=== PATIENT | male | born 1945 | race Caucasian/White ===

== ENCOUNTER 2016-10-25 10:37 | Emergency (ER) | payer MEDICARE ==
[2016-10-25 12:36] LABS: BASOPHIL 0.4 % (0-2); EOSINOPHIL 0.8 % (0-7); HCT 39.5 % (42.0-52.0); HGB 13.9 g/dl (13.2-18.0); LYMPHOCYTE 13.2 % (15-48); MCH 31.7 pg (25.0-31.0); MCHC 35.2 g/dL (32.0-36.0); MONOCYTE 18.1 % (0-12); NEUTROPHIL 67.5 % (41-80); PLT 120 K/uL (150-400); RBC 4.39 M/uL (4.70-6.00); RDW 15.4 % (11.5-14.0); WBC 5.2 K/uL (4.0-10.5)
== END 2016-10-25 13:27 | disposition home or self-care (01) ==
LOC: FER 10:37
PROVIDERS: Nurse Practitioner Family
DX: L03.211 Cellulitis of face (principal); I10 Essential (primary) hypertension; Z85.46 Personal history of malignant neoplasm of prostate; Z88.8 Allergy status to other drugs, medicaments and biological substances; Z79.899 Other long term (current) drug therapy
CPT/HCPCS: 36415; 85025; 99283